=== PATIENT | female | born 1925 | race Caucasian/White ===

== ENCOUNTER 2016-05-05 12:28 | Emergency (ER) | payer OTHER ==
[~2016-05-05] VITALS: Ht 167.6 cm; Wt 47.0 kg
[~2016-05-05 12:28] MED LIST: OMEP40CA41 PO
[2016-05-05 12:39] VITALS: TEMP 37.1; Ht 167.6 cm; Wt 47.0 kg
[2016-05-05 12:44] VITALS: O2SAT 95
[2016-05-05 13:28] LABS: COMPLETE YES; EOS % 1.3 %; HEMATOCRIT 32.1 % (37-47); IG% 0.3 %; LYMPH % 26.4 %; LYMPH ABS # 0.99 K/uL (1.2-3.4); MEAN CELL VOLUME 84.5 fL (80-100); MEAN CORPUSCULAR HEMOGLOBIN 29.5 pg (25-34); MEAN CORPUSCULAR HGB CONC 34.9 g/dl (32-36); MEAN PLATELET VOLUME 10.2 fL (7.4-10.4); MONO % 8.8 %; NEUT % 63.2 %; PLATELET COUNT 137 K/uL (130-400); WHITE BLOOD COUNT 3.75 K/uL (4.8-10.8)
--- NOTE | 2016-05-05 13:31 | DIAGNOSTIC IMAGING REPORT ---
CHEST ONE VIEW PORTABLE CLINICAL HISTORY: Left upper quadrant abdominal pain COMPARISON STUDY: 03/07/2016 FINDINGS: There is radiographic evidence of emphysema. There are stable left basilar atelectatic changes. There is no lobar consolidation. No free intraperitoneal air is visualized. There is radiographic evidence of chronic rotator cuff tear.[ IMPRESSION: 1. Hyperinflation 2. Left basilar atelectasis 3. No free air identified Electronically signed by: Benja Morillo M.D. 05/05/2016 1:30 PM Dictated Date/Time: 05/05/2016 1:29 PM
[2016-05-05 13:47] LABS: ALT/SGPT 29 U/L (12-78); AST/SGOT 25 U/L (15-37); BLOOD UREA NITROGEN 10 mg/dl (7-18); BUN/CREATININE RATIO 19.1 (10-20); CALCIUM 7.9 mg/dl (8.5-10.1); CARBON DIOXIDE 31 mmol/L (21-32); CHLORIDE 103 mmol/L (98-107); CREATININE 0.53 mg/dl (0.60-1.20); GLUCOSE 83 mg/dl (70-99); POTASSIUM 2.7 mmol/L (3.5-5.1); SODIUM 144 mmol/L (136-145)
[2016-05-05 13:52] LABS: ALKALINE PHOSPHATASE 79 U/L (45-117)
--- NOTE | 2016-05-05 14:01 | EMERGENCY ROOM VISIT NOTE ---
History Report prepared by Kvng: Jeferson Buckner Under the Supervision of: Dr. Chaparro Rasmussen M.D. First contact with patient: 13:02 Chief Complaint: ABDOMINAL PAIN Stated Complaint: ABDOMINAL PAIN Nursing Triage Summary: Patient reports being recently diagnosed with pancreatic cancer. Patient has not been taking any treatment and has not been taking any pain medication. Patient presents to ER with Right upper side abd pain that persisted this morning and came to the er for evaluation for uncontrolled pain, patient denies n/v at this time. History of Present Illness The patient is a 89 year old female who presents to the Emergency Room with complaints of constant upper abdominal pain starting this morning. The patient states that this morning it was additionally very difficult to take a deep breath. The patient denies any back pain. She states that it is not worse when she moves. The patient denies taking any pain medications at home. Per the son, the patient has been having abdominal pain in mornings, and then the pain subsides throughout the day. The son additionally states that the patient has a stent in her pancreas. The patient's son additionally states that the patient has been doing well until the past few days once she was diagnosed with pancreatic cancer. Source of History: patient, family Onset: this morning Position: abdomen Timing: constant Associated Symptoms: No back pain Review of Systems See HPI for pertinent positives & negatives. A total of 10 systems reviewed and were otherwise negative. Past Medical & Surgical Medical Problems: (1) Pancreatic cancer (2) Ribs, multiple fractures (3) Stress incontinence (4) Thoracic vertebral fracture Surgical Problems: (1) History of appendectomy (2) History of bladder surgery (3) History of cholecystectomy (4) History of total hysterectomy Family History Hypertension Social History Smoking Status: Never Smoker Alcohol Use: occasionally Drug Use: none Marital Status: Housing Status: lives alone Occupation Status: employed Current/Historical Medications Scheduled Omeprazole (Prilosec), 40 MG PO DAILY Allergies Uncoded Allergies: CREAM CRAB (Adverse Reaction, Intermediate, NAUSEA, 02/02/15) Physical Exam Vital Signs Date Time Temp Pulse Resp B/P Pulse Ox O2 Delivery O2 Flow Rate FiO2 05/05/16 17:48 79 19 115/68 96 05/05/16 16:49 82 19 114/66 95 Room Air 05/05/16 14:41 74 18 117/74 94 Room Air 05/05/16 13:28 76 20 119/71 95 Room Air 05/05/16 13:18 80 05/05/16 12:44 95 Room Air 05/05/16 12:39 37.1 77 16 107/66 96 Room Air Physical Exam GENERAL: Patient is well appearing and in minimal distress. HEENT: Mildly jaundiced conjunctiva. No acute trauma, normocephalic atraumatic, mucous membranes moist, no nasal congestion, no scleral icterus. NECK: No stridor, no adenopathy, no meningismus, trachea is midline. LUNGS: No dyspnea. Clear to auscultation and equal bilaterally. No wheeze, no rhonchi. HEART: Regular rate and rhythm. No murmurs, rubs, gallops appreciated. ABDOMEN: Vague tenderness over the left upper quadrant. Soft, bowel sounds positive, no masses appreciated, no peritonitis. BACK: No midline tenderness, no CVA tenderness EXTREMITIES: Normal motion all extremities, no cyanosis, no edema. NEUROLOGIC: Alert and oriented, no acute motor or sensory deficits, no focal weakness, cranial nerves grossly intact. SKIN: No rash, no jaundice, no diaphoresis. Medical Decision & Procedures ER Provider Diagnostic Interpretation: X ray results and stated below per my interpretation and radiologist interpretation. Other radiology results and stated below per my review and radiologist interpretation: CHEST ONE VIEW PORTABLE CLINICAL HISTORY: Left upper quadrant abdominal pain COMPARISON STUDY: 03/07/2016 FINDINGS: There is radiographic evidence of emphysema. There are stable left basilar atelectatic changes. There is no lobar consolidation. No free intraperitoneal air is visualized. There is radiographic evidence of chronic rotator cuff tear.[ IMPRESSION: 1. Hyperinflation 2. Left basilar atelectasis 3. No free air identified Electronically signed by: Benja Morillo M.D. 05/05/2016 1:30 PM Dictated Date/Time: 05/05/2016 1:29 PM Laboratory Results 05/05/16 13:20 Red Blood Count 3.80, Mean Corpuscular Volume 84.5, Mean Corpuscular Hemoglobin 29.5, Mean Corpuscular Hemoglobin Concent 34.9, Mean Platelet Volume 10.2, Neutrophils (%) (Auto) 63.2, Lymphocytes (%) (Auto) 26.4, Monocytes (%) (Auto) 8.8, Eosinophils (%) (Auto) 1.3, Basophils (%) (Auto) 0.0, Neutrophils # (Auto) 2.37, Lymphocytes # (Auto) 0.99, Monocytes # (Auto) 0.33, Eosinophils # (Auto) 0.05, Basophils # (Auto) 0.00 05/05/16 13:20 Test 05/05/16 13:20 White Blood Count 3.75 K/uL (4.8-10.8) Red Blood Count 3.80 M/uL (4.2-5.4) Hemoglobin 11.2 g/dL (12.0-16.0) Hematocrit 32.1 % (37-47) Mean Corpuscular Volume 84.5 fL (80-100) Mean Corpuscular Hemoglobin 29.5 pg (25-34) Mean Corpuscular Hemoglobin Concent 34.9 g/dl (32-36) Platelet Count 137 K/uL (130-400) Mean Platelet Volume 10.2 fL (7.4-10.4) Neutrophils (%) (Auto) 63.2 % Lymphocytes (%) (Auto) 26.4 % Monocytes (%) (Auto) 8.8 % Eosinophils (%) (Auto) 1.3 % Basophils (%) (Auto) 0.0 % Neutrophils # (Auto) 2.37 K/uL (1.4-6.5) Lymphocytes # (Auto) 0.99 K/uL (1.2-3.4) Monocytes # (Auto) 0.33 K/uL (0.11-0.59) Eosinophils # (Auto) 0.05 K/uL (0-0.5) Basophils # (Auto) 0.00 K/uL (0-0.2) RDW Standard Deviation 44.2 fL (36.4-46.3) RDW Coefficient of Variation 14.3 % (11.5-14.5) Immature Granulocyte % (Auto) 0.3 % Immature Granulocyte # (Auto) 0.01 K/uL (0.00-0.02) Anion Gap 10.0 mmol/L (3-11) Est Creatinine Clear Calc Drug Dose 53.4 ml/min Estimated GFR () 97.6 Estimated GFR (Non- 84.2 BUN/Creatinine Ratio 19.1 (10-20) Calcium Level 7.9 mg/dl (8.5-10.1) Total Bilirubin 1.5 mg/dl (0.2-1) Direct Bilirubin 0.6 mg/dl (0-0.2) Aspartate Amino Transf (AST/SGOT) 25 U/L (15-37) Alanine Aminotransferase (ALT/SGPT) 29 U/L (12-78) Alkaline Phosphatase 79 U/L (45-117) Troponin I < 0.015 ng/ml (0-0.045) Total Protein 5.8 gm/dl (6.4-8.2) Albumin 2.8 gm/dl (3.4-5.0) Lipase 625 U/L (73-393) Laboratory results as reviewed by me. Medications Administered Medications (Trade) Dose Ordered Sig/Pierre Route Start Time Stop Time Status Last Admin Dose Admin Oxycodone HCl (Roxicodone Immediate Rel 5MG Home Pack) 1 homepack UD ONCE PO 05/05/16 17:00 05/05/16 17:01 DC 05/05/16 17:47 1 HOMEPACK ECG Indication: abdominal pain Rate (beats per minute): 75 Rhythm: sinus rhythm Findings: no acute ischemic change, no ectopy ED Course 1302: The patient was evaluated in room B11. A complete history and physical exam was performed. 1432: I reevaluated the patient, and she was feeling fine. The complex case manager is going to touch base with the patient and her hospice team. 1655: Reevaluated the patient. Discussed results and discharge instructions: She verbalized understanding and agreement. She will be seen by hospice tonight. The patient is ready for discharge. 1700: Oxycodone HCl 1 home pack PO Medical Decision Differential: Gastritis/PUD, Pancreatitis, Hepatic dysfunction, PE, ACS, Aortic Pathology, amongst other pathologies entertained. 89 yr old female with known Pancreatic CA who is on hospice and does not want further intervention. Previous episodes of pancreatitis with admission 2 months ago. Just mildly bumped Lipase currently. Exam is benign and she is without any complaints now. No evidence of dissection nor ACS/PE. She is comfortable and in no distress. Even several hours post Morphine she is feeling quite well. We discussed case with Hospice who note they can be at patient's house this evening for further evaluation. While not completely sure cause, I would suspect this is pancreas related, though without further imaging it would be impossible to tell. She is stable and in no distress and has already opted to avoid any life saving procedures. I made it clear to family I am not able to give them timeline of how this cancer will progress. I did give to go pack oxy ir to have at home with extensive instructions regarding it's use. She has had some falls recently though none in last week and if bleeding was found on CT would not want further intervention as it is. She is stable and wants to go home. This seems reasonable, especially given pain free for many hours and that hospice will be there soon. Aware she can return at any time if she is concerns further symptoms or wants more evaluation. Impression Primary Impression: Acute abdominal pain in left upper quadrant Scribe Attestation The scribe's documentation has been prepared under my direction and personally reviewed by me in its entirety. I confirm that the note above accurately reflects all work, treatment, procedures, and medical decision making performed by me. Departure Information Dispostion Home / Self-Care Referrals Ricarda Palumbo D.O. (PCP) Forms HOME CARE DOCUMENTATION FORM, IMPORTANT VISIT INFORMATION Patient Instructions My [facility] Additional Instructions You have received a narcotic pain medication prescription. These medications may cause drowsiness and should not be used with other sedative medications. Do not drive, drink alcohol, perform dangerous activities, nor make important decisions after taking these medications. These medications can cause constipation. We are always here to help. If you pain worsens and doesn't improve with pain medications, return or call 911.
[2016-05-05] MEDS ORDERED: OXYCODONE IR HOME PACK PO ONE (17:00)
[2016-05-05 17:48] VITALS: BP 115/68; PULSE 79; O2SAT 96
[2016-05-06] MEDS ORDERED: OXYC-57 PO (09:54)
== END 2016-05-05 17:50 | disposition home or self-care (01) ==
LOC: EDBD 12:28 → C.EDB 12:29
DX: R10.12 Left upper quadrant pain (principal); C25.9 Malignant neoplasm of pancreas, unspecified; Z79.899 Other long term (current) drug therapy

== ENCOUNTER 2016-05-06 08:34 | Emergency (ER) | payer OTHER ==
[~2016-05-06] VITALS: Ht 170.2 cm; Wt 50.2 kg
[2016-05-06 08:42] VITALS: TEMP 37.5; Ht 170.2 cm; Wt 50.2 kg
--- NOTE | 2016-05-06 09:13 | DIAGNOSTIC IMAGING REPORT ---
LEFT WRIST MIN 3 VIEWS ROUTINE, LEFT HAND MIN 3 VIEWS ROUTINE CLINICAL HISTORY: Left wrist pain. Left thumb pain. Fall. COMPARISON STUDY: None. FINDINGS: The bones are osteopenic. Soft tissue swelling within the left thumb. Moderate to severe degenerative changes within the left hand. 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 There is soft tissue swelling within the wrist. Nondisplaced fracture within the distal radius best seen on the lateral view. IMPRESSION: 1. Nondisplaced distal radius fracture. 2. No fracture or dislocation within the left hand. Electronically signed by: Roger Clarke M.D. 05/06/2016 9:11 AM Dictated Date/Time: 05/06/2016 9:07 AM
[2016-05-06 09:44] VITALS: O2SAT 93
[2016-05-06] MEDS ORDERED: OXYC-57 PO (09:54)
[2016-05-06 10:00] VITALS: BP 127/73; PULSE 72; O2SAT 93
--- NOTE | 2016-05-06 10:05 | EMERGENCY ROOM VISIT NOTE ---
ED Visit Note First contact with patient: 08:37 Patient was seen by our PA/PERSONAL CARER. I was involved in the patient's care and did evaluate the patient myself. I was involved in the care throughout the ER stay. The patient does have a subtle distal radius fracture on film. She has been splinted. She is being discharged home with outpatient follow-up.
--- NOTE | 2016-05-13 07:19 | EMERGENCY ROOM VISIT NOTE ---
ED Visit Note First contact with patient: 08:37 CHIEF COMPLAINT: Left wrist pain HISTORY OF PRESENT ILLNESS: This 89-year-old white female patient complains of pain at her left wrist and thumb. She denies any falls. She does live by herself. There is no numbness of the hand. The pain is constant and moderate in severity. She was just seen here yesterday for abdominal pain. There was no edema or ecchymosis noted at her left wrist or thumb. She was discharged home yesterday. Symptoms have developed since being discharged from here yesterday. Right-hand dominant. Her sons accompany her today. They believe she must have fallen again at home. She denies any other areas of discomfort at this time. REVIEW OF SYSTEMS: Unchanged from yesterday PMH: Unchanged from yesterday. Patient does have pancreatic cancer. Multiple rib fractures. Thoracic vertebral fracture. Previous surgeries: Appendectomy, bladder surgery, cholecystectomy, hysterectomy Family history: Hypertension SOCIAL HISTORY: Patient lives at home. . No tobacco use, occasional EtOH use. Retired. Current medications: Filed in patient's chart Allergies: NKDA PHYSICAL EXAM: Vital Signs: Reviewed Nurse's notes. Temp 37.5 pulse 86 BP 145/ 88 respirations 16. General: Frail, white female, in no acute distress. His discomfort. Sitting on a bed. Alert. Skin: There is swelling and tenderness of the distal forearm and wrist. There is no significant deformity of the distal forearm. The skin is intact. She has ecchymosis present at the base of the first metacarpal. Musculoskeletal: No pain with palpation of the elbow or midshaft forearm. She does have pain with palpation over the distal radius. No pain at the distal ulna. She does have pain over the anatomic snuffbox and first CMC joint. No pain with palpation over the rest the metacarpals or digits. Motor function of the fingers is intact. Thumb circumduction and opposition are intact but does cause pain. Limited wrist range of motion secondary to discomfort. Neurologic: Gross sensation is intact across the left arm by soft touch. Peripheral pulses are 2+. Data: Radiographic imaging of the left hand and wrist were obtained. These were read by radiology as positive for a nondisplaced distal radius fracture. Degenerative changes within the wound but no additional fractures. DIAGNOSIS: Left wrist nondisplaced distal radius fracture Plan: Patient and her sons were educated regarding today's findings. Conservative care measures were discussed. She is placed in a well-padded volar Ortho-Glass splint. This was done under my supervision. Neurovascular status was checked before and after splint placement. Patient likely fell again at home. Because of this, the family will further arrangements for supervised care. Ice and elevate frequently to reduce pain and swelling. Keep the splint on at all times and keep it dry. Use Tylenol every 6 hours as needed for mild pain. Prescription was provided for Percocet to be used for more severe pain. Risk of additional falls was discussed. Call [facility] tomorrow for follow-up later this week for a cast. Patient was seen in conjunction with Dr. Cid, who also evaluated the patient and concurred with today's diagnosis and treatment plan. Problem List Medical Problems: (1) Pancreatic cancer Status: Chronic (2) Ribs, multiple fractures Status: Resolved (3) Stress incontinence Status: Chronic (4) Thoracic vertebral fracture Status: Chronic Surgical Problems: (1) History of appendectomy Status: Resolved (2) History of bladder surgery Permanent Comment: cystocele repair Dr Hernandez at [facility] in 1999, recurred after 2 months Status: Resolved (3) History of cholecystectomy Status: Resolved (4) History of total hysterectomy Status: Resolved Current/Historical Medications Scheduled Omeprazole (Prilosec), 40 MG PO DAILY Scheduled PRN Oxycodone/Acetaminophen 5MG/325MG (Percocet 5MG/325MG), 1 TAB PO Q6H PRN for Pain Allergies Uncoded Allergies: CREAM CRAB (Adverse Reaction, Intermediate, NAUSEA, 02/02/15) Vital Signs Date Time Temp Pulse Resp B/P Pulse Ox O2 Delivery O2 Flow Rate FiO2 05/06/16 10:00 72 18 127/73 93 05/06/16 09:44 72 18 127/73 93 05/06/16 08:42 37.5 86 16 145/88 93 Room Air Departure Information Impression Primary Impression: Fracture of right distal radius Dispostion Home / Self-Care Condition GOOD Prescriptions Oxycodone/Acetaminophen 5MG/325MG (PERCOCET 5MG/325MG) Tab 1 TAB PO Q6H Y for Pain, #14 TAB For Initial Treatment Prov: Steven Talbot,P.A. 05/06/16 Referrals Ravi Stanton M.D. Forms CARE OF CASTS, WORK / SCHOOL INSTRUCTIONS, HOME CARE DOCUMENTATION FORM, SPECIAL NARCOTICS INSTRUCTIONS, TYLENOL USE, IMPORTANT VISIT INFORMATION Patient Instructions My [facility] Additional Instructions Ice and elevate frequently to reduce pain and swelling Keep the splint on at all times and keep it dry Percocet 1-2 tablets every 6 hours as needed for severe pain. Use Tylenol every 6 hours as needed for mild pain Call [facility] tomorrow for follow-up on Saturday or
== END 2016-05-06 10:00 | disposition home or self-care (01) ==
LOC: EDBD 08:34 → C.EDB 08:35
DX: S52.502A Unspecified fracture of the lower end of left radius, initial encounter for closed fracture (principal); X58.XXXA Exposure to other specified factors, initial encounter; C25.9 Malignant neoplasm of pancreas, unspecified; Z90.89 Acquired absence of other organs; Z90.710 Acquired absence of both cervix and uterus; Z90.49 Acquired absence of other specified parts of digestive tract; Z98.890 Other specified postprocedural states; Z82.49 Family history of ischemic heart disease and other diseases of the circulatory system